=== PATIENT | female | born 1945 | race Caucasian/White ===

== ENCOUNTER 2017-07-18 10:40 | Day surgery (SDC) | payer OTHER ==
[2017-07-18] MEDS ORDERED: IRON SUCROSE INJECTION 200 MG in SODIUM CHLORIDE 100 ML IVPB ONE (12:00)
[2017-07-18 12:46] VITALS: BP 127/49; PULSE 70; TEMP 97.8
== END 2017-07-18 12:40 | disposition home or self-care (01) ==
LOC: FINFUSION 10:40 → FM/S 10:43 → FINFUSION 12:40
PROVIDERS: ATTEND Internal Medicine Hematology & Oncology
PROC: 3E033GC Introduction of Other Therapeutic Substance into Peripheral Vein, Percutaneous Approach (ICD-10-PCS; principal; 2017-07-18)
DX: E61.1 Iron deficiency (principal)
CPT/HCPCS: 96365; J1756

== ENCOUNTER 2017-07-25 09:42 | Day surgery (SDC) | payer OTHER ==
[2017-07-25] MEDS ORDERED: IRON SUCROSE INJECTION 200 MG in SODIUM CHLORIDE 100 ML IVPB ONE (10:30)
[2017-07-25 11:05] VITALS: BP 124/62; PULSE 69; TEMP 98; BMI 51.5
== END 2017-07-25 11:45 | disposition home or self-care (01) ==
LOC: FINFUSION 09:42 → FM/S 09:45 → FINFUSION 11:45
PROVIDERS: ATTEND Internal Medicine Hematology & Oncology
PROC: 3E033GC Introduction of Other Therapeutic Substance into Peripheral Vein, Percutaneous Approach (ICD-10-PCS; principal; 2017-07-25)
DX: E61.1 Iron deficiency (principal)
CPT/HCPCS: 96365; J1756

== ENCOUNTER 2017-08-01 09:22 | Day surgery (SDC) | payer OTHER ==
[2017-08-01 10:07] VITALS: TEMP 98.1
[2017-08-01] MEDS ORDERED: IRON SUCROSE INJECTION 200 MG in SODIUM CHLORIDE 100 ML IVPB ONE (10:15)
[2017-08-01 10:37] VITALS: BP 140/60; PULSE 74
== END 2017-08-01 10:38 | disposition home or self-care (01) ==
LOC: FINFUSION 09:22 → FM/S 09:24 → FINFUSION 10:38
PROVIDERS: ATTEND Internal Medicine Hematology & Oncology
PROC: 3E033GC Introduction of Other Therapeutic Substance into Peripheral Vein, Percutaneous Approach (ICD-10-PCS; principal; 2017-08-01)
DX: E61.1 Iron deficiency (principal)
CPT/HCPCS: 96365; J1756

== ENCOUNTER 2017-08-08 09:21 | Day surgery (SDC) | payer OTHER ==
[2017-08-08] MEDS ORDERED: diphenhydrAMINE HCL 25 MG CAPSULE (FP) PO PRN (09:49)
[2017-08-08] MEDS ORDERED: HYDROCORTISONE SOD SUCCINATE 100 MG/2 ML VIAL IVPUSH PRN (09:50)
[2017-08-08] MEDS ORDERED: IRON SUCROSE INJECTION 200 MG in SODIUM CHLORIDE 100 ML IVPB ONE (10:00)
[2017-08-08 10:42] VITALS: TEMP 98.6
[2017-08-08 11:04] VITALS: BP 122/72; PULSE 68
== END 2017-08-08 11:20 | disposition home or self-care (01) ==
LOC: FM/S 09:21 → FINFUSION 09:21
PROVIDERS: ATTEND Internal Medicine Hematology & Oncology
PROC: 3E033GC Introduction of Other Therapeutic Substance into Peripheral Vein, Percutaneous Approach (ICD-10-PCS; principal; 2017-08-08)
DX: E61.1 Iron deficiency (principal)
CPT/HCPCS: 96365; J1756

== ENCOUNTER 2017-08-15 09:26 | Day surgery (SDC) | payer OTHER ==
[2017-08-15] MEDS ORDERED: IRON SUCROSE INJECTION 200 MG in SODIUM CHLORIDE 100 ML IVPB ONE (10:30)
[2017-08-15 11:28] VITALS: BP 160/70; PULSE 72; TEMP 97.6
== END 2017-08-15 11:15 | disposition home or self-care (01) ==
LOC: FINFUSION 09:26 → FM/S 09:38 → FINFUSION 11:15
PROVIDERS: ATTEND Internal Medicine Hematology & Oncology
PROC: 3E033GC Introduction of Other Therapeutic Substance into Peripheral Vein, Percutaneous Approach (ICD-10-PCS; principal; 2017-08-15)
DX: E61.1 Iron deficiency (principal)
CPT/HCPCS: 96365; J1756

== ENCOUNTER 2017-08-22 09:18 | Day surgery (SDC) | payer OTHER ==
[2017-08-22] MEDS ORDERED: diphenhydrAMINE HCL 25 MG CAPSULE (FP) PO PRN (09:56)
[2017-08-22] MEDS ORDERED: HYDROCORTISONE SOD SUCCINATE 100 MG/2 ML VIAL IVPUSH PRN (09:57)
[2017-08-22] MEDS ORDERED: IRON SUCROSE INJECTION 200 MG in SODIUM CHLORIDE 100 ML IVPB ONE (10:00)
[2017-08-22 10:04] VITALS: PULSE 76
[2017-08-22 12:18] VITALS: BP 133/65; TEMP 97.8
== END 2017-08-22 11:35 | disposition home or self-care (01) ==
LOC: FINFUSION 09:18 → FM/S 09:24 → FINFUSION 11:35
PROVIDERS: ATTEND Internal Medicine Hematology & Oncology
PROC: 3E033GC Introduction of Other Therapeutic Substance into Peripheral Vein, Percutaneous Approach (ICD-10-PCS; principal; 2017-08-22)
DX: E61.1 Iron deficiency (principal)
CPT/HCPCS: 96365; J1756

== ENCOUNTER 2019-02-24 10:11 | Day surgery (SDC) | payer OTHER ==
[2019-02-24] MEDS ORDERED: CYANOCOBALAMIN (VITAMIN B-12) 1000 MCG/1 ML VIAL SQ ONE (10:45)
[2019-02-24] MEDS ORDERED: IRON SUCROSE INJECTION 200 MG in SODIUM CHLORIDE 100 ML IVPB ONE (10:45)
[2019-02-24 15:15] VITALS: BP 112/67; PULSE 68
== END 2019-02-24 13:42 | disposition home or self-care (01) ==
LOC: FINFUSION 10:11 → FM/S 10:20 → FINFUSION 13:42
PROVIDERS: ATTEND Internal Medicine Hematology & Oncology
PROC: 3E033GC Introduction of Other Therapeutic Substance into Peripheral Vein, Percutaneous Approach (ICD-10-PCS; principal; 2019-02-24)
DX: D50.8 Other iron deficiency anemias (principal); E53.8 Deficiency of other specified B group vitamins
CPT/HCPCS: 96365; 96372; J1756

== ENCOUNTER 2019-03-03 09:36 | Day surgery (SDC) | payer OTHER ==
[2019-03-03] MEDS ORDERED: IRON SUCROSE INJECTION 200 MG in SODIUM CHLORIDE 100 ML IVPB ONE (10:00)
[2019-03-03 10:11] VITALS: BP 126/61; TEMP 97.6
[2019-03-03] MEDS ORDERED: CYANOCOBALAMIN (VITAMIN B-12) 1000 MCG/1 ML VIAL SQ ONE (10:30)
[2019-03-03 10:57] VITALS: PULSE 62
== END 2019-03-03 11:06 | disposition home or self-care (01) ==
LOC: FINFUSION 09:36 → FM/S 09:37 → FINFUSION 11:06
PROVIDERS: ATTEND Internal Medicine Hematology & Oncology
PROC: 3E033GC Introduction of Other Therapeutic Substance into Peripheral Vein, Percutaneous Approach (ICD-10-PCS; principal; 2019-03-03)
DX: D50.8 Other iron deficiency anemias (principal); E53.8 Deficiency of other specified B group vitamins
CPT/HCPCS: 96365; 96372; J1756

== ENCOUNTER 2019-03-10 09:26 | Day surgery (SDC) | payer OTHER ==
[2019-03-10] MEDS ORDERED: IRON SUCROSE INJECTION 200 MG in SODIUM CHLORIDE 100 ML IVPB ONE (10:30)
[2019-03-10] MEDS ORDERED: CYANOCOBALAMIN (VITAMIN B-12) 1000 MCG/1 ML VIAL SQ ONE (10:30)
[2019-03-10 10:50] VITALS: BP 115/51; PULSE 62; TEMP 97.9; BMI 105.0
== END 2019-03-10 11:36 | disposition home or self-care (01) ==
LOC: FINFUSION 09:26 → FM/S 09:34 → FINFUSION 11:36
PROVIDERS: ATTEND Internal Medicine Hematology & Oncology
PROC: 3E033GC Introduction of Other Therapeutic Substance into Peripheral Vein, Percutaneous Approach (ICD-10-PCS; principal; 2019-03-10)
DX: D50.8 Other iron deficiency anemias (principal)
CPT/HCPCS: 96365; 96372; J1756

== ENCOUNTER 2019-03-17 11:06 | Day surgery (SDC) | payer OTHER ==
[2019-03-17] MEDS ORDERED: CYANOCOBALAMIN (VITAMIN B-12) 1000 MCG/1 ML VIAL SQ ONE (12:00)
[2019-03-17] MEDS ORDERED: IRON SUCROSE INJECTION 200 MG in SODIUM CHLORIDE 100 ML IVPB ONE (12:00)
[2019-03-17 12:33] VITALS: BP 144/67; PULSE 64
== END 2019-03-17 13:07 | disposition home or self-care (01) ==
LOC: FINFUSION 11:06 → FM/S 11:15 → FINFUSION 13:07
PROVIDERS: ATTEND Internal Medicine Hematology & Oncology
PROC: 3E033GC Introduction of Other Therapeutic Substance into Peripheral Vein, Percutaneous Approach (ICD-10-PCS; principal; 2019-03-17)
DX: D50.8 Other iron deficiency anemias (principal)
CPT/HCPCS: 96365; 96372; J1756